=== PATIENT | male | born 1985 | race Two or more races ===

== ENCOUNTER 2018-12-08 21:57 | Emergency (ER) | payer SELFPAY ==
[~2018-12-08] VITALS: Ht 182.9 cm; Wt 86.2 kg
[~2018-12-08 21:57] MED LIST: CEPH-37 PO; CHL12OR PO; TRAM50TA2 PO
[2018-12-08 23:29] VITALS: BP 141/101
[2018-12-08] MEDS ORDERED: DexAMETHasone SOD PHOS 10MG/1ML VIAL INJ IM ONE (23:30)
[2018-12-08] MEDS ORDERED: cefTRIAXone SOD 1,000 MG VL IM ONE (23:30)
== END 2018-12-09 00:02 | disposition home or self-care (01) ==
LOC: ER 21:59
DX: B86 Scabies (principal)
CPT/HCPCS: 96372; 99283; J0696; J1100

== ENCOUNTER 2024-05-28 16:08 | Emergency (ER) | payer MEDICAID ==
[~2024-05-28] VITALS: Ht 180.3 cm; Wt 90.9 kg
[2024-05-28 16:24] VITALS: BP 160/104; PULSE 115; RESP 18; TEMP 98.8; O2SAT 94
== END 2024-05-28 18:57 | disposition left against medical advice (07) ==
LOC: ER 16:08
DX: M25.561 Pain in right knee (principal); Z53.21 Procedure and treatment not carried out due to patient leaving prior to being seen by health care provider